=== PATIENT | male | born 1980 | race African-American/Black ===

== ENCOUNTER → 2016-11-15 | Day surgery (SDC) | payer BC ==
[~2016-11-15] MED LIST: ALPRAZOLAM0.5 MG PO; FLECTOR1 EACH TOP; LIDODERM30 EA TOP; PHENERGAN25 M1 PO; PRINIVIL40 MG PO; SIMVASTATIN40 MG PO; TAMIFLU75 M1 PO; ZESTRIL40 MG PO
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
== END | disposition home or self-care (01) ==
LOC: CCSC 09:35
DX: M51.16 Intervertebral disc disorders with radiculopathy, lumbar region (principal)
CPT/HCPCS: J1040; J2250

== ENCOUNTER → 2016-11-29 | Day surgery (SDC) | payer BC ==
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
== END | disposition home or self-care (01) ==
LOC: CCSC 09:29
DX: M51.16 Intervertebral disc disorders with radiculopathy, lumbar region (principal)
CPT/HCPCS: J1040; J2250

== ENCOUNTER 2017-01-06 13:29 | Emergency (ER) | payer OTHER ==
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
== END 2017-01-06 15:08 | disposition home or self-care (01) ==
LOC: SED 13:29
DX: S09.90XA Unspecified injury of head, initial encounter (principal); V49.00XA Driver injured in collision with unspecified motor vehicles in nontraffic accident, initial encounter; Y92.410 Unspecified street and highway as the place of occurrence of the external cause
CPT/HCPCS: 36415; 70450; 72125; 96372; 99284; J1885